=== PATIENT | male | born 1990 ===

== ENCOUNTER 2017-02-16 21:27 | Emergency (ER) | payer OTHER ==
--- NOTE | 2017-02-16 23:06 | ED ---
Laceration/Wound HPI - HPI Summary HPI Summary: 27M presents with left thumb laceration. He cut it with a knife when cutting an apple. He has limited flexion of IP joint. He denies any foreign body. minimal bleeding. no numbness or tingling. is right handed. believes tetanus is up to date. - History of Current Complaint Stated Complaint: LT HAND LAC Time Seen by Provider: 02/16/17 21:52 Pain Intensity: 4 - Allergy/Home Medications Allergies/Adverse Reactions: Allergies Allergy/AdvReac Type Severity Reaction Status Date / Time No Known Allergies Allergy Verified 12/10/15 11:19 PMH/Surg Hx/FS Hx/Imm Hx Endocrine/Hematology History: Denies: Hx Anticoagulant Therapy Cardiovascular History: Denies: Hx Hypertension Respiratory History: Reports: Hx Asthma - HX OF EXERCISE A TEEN- NO PROBLEMS SINCE Sensory History: Denies: Hx Contacts or Glasses, Hx Hearing Aid Opthamlomology History: Denies: Hx Contacts or Glasses - Surgical History Surgery Procedure, Year, and Place: ~2007-[facility] [place]. 2006- TORSION OF TESTES[facility] Hx Anesthesia Reactions: No - Immunization History Immunizations Up to Date: Yes Infectious Disease History: No Infectious Disease History: Denies: Traveled Outside the [place] in Last 30 Days - Family History Known Family History: Negative: Diabetes - Social History Alcohol Use: Occasionally Substance Use Type: Reports: None Smoking Status (MU): Never Smoked Tobacco Review of Systems Negative: Fever Negative: Chest Pain Negative: Shortness Of Breath Positive: Other - left thumb laceration All Other Systems Reviewed And Are Negative: Yes Physical Exam Triage Information Reviewed: Yes Vital Signs On Initial Exam: Initial Vitals Temp Pulse Resp BP Pulse Ox 98 F 60 18 148/87 97 02/16/17 21:38 02/16/17 21:38 02/16/17 21:38 02/16/17 21:38 02/16/17 21:38 Vital Signs Reviewed: Yes Appearance: Positive: Well-Appearing Skin: Positive: Warm, Dry, Other - 1 and 1/2 cm laceration of proximal phalanx left thumb Head/Face: Positive: Normal Head/Face Inspection Eyes: Positive: Normal, Conjunctiva Clear Respiratory/Lung Sounds: Positive: Clear to Auscultation, Breath Sounds Present Cardiovascular: Positive: Normal, RRR Musculoskeletal: Positive: Strength/ROM Intact - left thumb, Other - good pulses , capillary refill<2 secs, has limited flexion of IP joint Neurological: Positive: Normal Psychiatric: Positive: Normal - [place] Coma Scale Coma Scale Total: 15 Procedures - Laceration/Wound Repair 1 Location: Other - left thumb Description: Linear Anesthesia: Local, 1.0% Length, Depth and Shape: 1 and 1/2 cm Betadine Prep?: Yes Irrigated w/ Saline (ccs): 100 Closure: Single Layer Suture Type: Prolene - 4-0 Number of Sutures: 3 Layer Closure?: No Sterile Dressing Applied?: Yes - telfa and metal splint with coband placed Diagnostics - Vital Signs Vital Signs Temp Pulse Resp BP Pulse Ox 02/16/17 21:38 98 F 60 18 148/87 97 - Laboratory Lab Statement: Any lab studies that have been ordered have been reviewed, and results considered in the medical decision making process. Laceration Repair Course/Dx - Course Course Of Treatment: 27M presents with left thumb laceration. He cut it with a knife when cutting an apple. He has limited flexion of IP joint. He denies any foreign body. minimal bleeding. no numbness or tingling. is right handed. believes tetanus is up to date. on exam neurovascular intact. 1 and 1/2cm laceration by 1/8cm by 1/8cm deep. does not appear tendon was cut but has limited flexion so will have follow up with ortho. irrigated and placed 3 sutures and placed in metal finger splint. patient understand and agrees with plan. - Differential Dx Differental Diagnoses: Abrasion, Avulsion, Laceration - Clinical Impression Provider Diagnoses: Laceration of left thumb Discharge - Discharge Plan Condition: Good Disposition: HOME Patient Education Materials: Care For Your Stitches (ED) Referrals: Non Staff,Doctor [Primary Care Provider] - Misael Moise MD [Medical Doctor] - Additional Instructions: Keep area in splint, change dressing once a day Keep area clean and dry for 48 hours Take Tylenol or ibuprofen for pain every 6 hours Return to ED or primary for suture removal in 10-14 days Follow up with ortho for potential tendon injury Return to ED if develop signs of infection such as fever, spreading redness, or pus formation
[2017-02-16 23:17] VITALS: BP 128/77
== END 2017-02-16 23:16 | disposition home or self-care (01) ==
LOC: ED 21:27
DX: S61.012A Laceration without foreign body of left thumb without damage to nail, initial encounter (principal); W26.0XXA Contact with knife, initial encounter; Y93.G3 Activity, cooking and baking; Y92.89 Other specified places as the place of occurrence of the external cause
CPT/HCPCS: 12002; 99282

== ENCOUNTER 2017-03-05 07:53 | Day surgery (SDC) | payer OTHER ==
[~2017-03-05 07:53] MED LIST: Acetaminophen TAB* 325 MG PO ONE; Buffered Lidocaine 0.9% SYRIN* 5 ML/SYR SYRINGE INTRADERM ONE; Dexamethasone IV* 4 MG/ML 1 ML (4 MG) IV SLOW PU ONE; Famotidine IV* 10 MG/ML 2 ML (20 mg) IV ONE
[2017-03-05] MEDS ORDERED: Propofol* 10 MG/ML 20 ML BTL IV PUSH ONE (08:17)
[2017-03-05] MEDS ORDERED: Lidocaine 2% PF * 5 ML VIAL ONE (08:17)
[2017-03-05] MEDS ORDERED: Midazolam* 1 MG/ML 2 ML VIAL (2 MG) ONE (08:19)
[2017-03-05] MEDS ORDERED: fentaNYL* 50 MCG/ML 2 ML VIAL (100 MCG VIAL) ONE (08:19)
[2017-03-05] MEDS ORDERED: Acetaminophen TAB* 325 MG ONE (08:32)
[2017-03-05] MEDS ORDERED: Dexamethasone IV* 4 MG/ML 1 ML (4 MG) ONE (08:33)
[2017-03-05] MEDS ORDERED: Famotidine IV* 10 MG/ML 2 ML (20 mg) ONE (08:33)
[2017-03-05] MEDS ORDERED: ceFAZolin 2 GM PREMIX (*) 2 GM/50 ML BAG IVPB ONE (08:41)
[2017-03-05] MEDS ORDERED: Lidocaine 1% INJ* 10 MG/ML 30 ML SDV ONE (09:54)
[2017-03-05] MEDS ORDERED: Ketorolac INJ* 30 MG/ML 1 ML VIAL ONE (10:35)
[2017-03-05] MEDS ORDERED: Ondansetron INJ* 2 MG/ML VIAL ONE (10:35)
[2017-03-05 12:05] VITALS: BP 130/79
--- NOTE | 2017-03-20 04:13 | OP ---
DATE OF OPERATION: 03/05/17 [facility] DATE OF : 89 SURGEON: Liz Gan MD CONTENT STRATEGY LEAD: NUBIA Martinez ANESTHESIOLOGIST: Bruna Echeverria MD ANESTHESIA: General. PRE-OP DIAGNOSIS: Left thumb flexor tendon laceration. POST-OP DIAGNOSIS: Left thumb flexor tendon laceration. OPERATIVE PROCEDURE: Left thumb flexor tendon repair. INDICATIONS: Fly is a 27-year-old male who cut himself with a knife on the left thumb while cutting apple. Since then, he cannot flex his thumb. The injury occurred 2 weeks prior to his visit to my office. He presents for flexor tendon repair of the left thumb. ESTIMATED BLOOD LOSS: Zero. TOURNIQUET TIME: About 45 minutes. DESCRIPTION OF PROCEDURE: The patient was brought to the operating room, was given a general anesthetic, placed in supine position on the operating room table with a tourniquet around his left upper arm. The skin of his left upper extremity was prepped and draped in usual sterile fashion. The laceration was incised and extended proximally and distally. The distal end of the tendon was retrievable, but the proximal end was not. Therefore, a small incision was made in the carpal tunnel and the transverse carpal ligament was released. The flexor tendon of the thumb was found in the carpal tunnel and then threaded back into the thumb wound. It was reapproximated with the distal stump of the tendon with a 4-strand core suture of 4-0 Prolene grasping suture and then an epitendinous suture of 6-0 nylon. This gave good position of the thumb and good gliding through the flexor tendon sheath. The wound was irrigated and skin edges were reapproximated with 4-0 nylon suture. The wounds were dressed with Xeroform, 4x4, Webril, and a thumb spica splint with the wrist and thumb in flexion. The patient tolerated the procedure well and was brought to the recovery room in good condition. [id number]/[facility] #: [id number] MTDD
== END 2017-03-05 10:55 | disposition home or self-care (01) ==
LOC: OREAST 07:53
PROVIDERS: ATTEND Orthopaedic Surgery
DX: S66.022A Laceration of long flexor muscle, fascia and tendon of left thumb at wrist and hand level, initial encounter (principal); W26.0XXA Contact with knife, initial encounter; Y93.9 Activity, unspecified; Y92.000 Kitchen of unspecified non-institutional (private) residence as the place of occurrence of the external cause; J45.990 Exercise induced bronchospasm; F41.8 Other specified anxiety disorders
CPT/HCPCS: A9270-GY; J0690; J1100; J1885; J2250; J2405; J2704; J3010